=== PATIENT | female | born 1930 | race Caucasian/White ===

== ENCOUNTER 2017-11-30 14:15 | Inpatient (IN) | payer MEDICARE ==
[2017-11-30] MEDS ORDERED: HYDROcodone /APAP 5/325 1 EACH TABLET PO PRN (16:04)
[2017-11-30] MEDS: FAMOTIDINE 20 MG TABLET PO SCH (16:51)
[2017-11-30] MEDS: PANTOPRAZOLE SODIUM 40 MG TABLET PO SCH (16:51)
[2017-11-30 17:35] VITALS: BMI 26.4
[2017-11-30] MEDS: CALCIUM/VIT D 500MG/200IU TABLET PO SCH (20:03)
[2017-11-30] MEDS: GABAPENTIN 300 MG CAPSULE PO SCH (20:03)
[2017-11-30] MEDS ORDERED: MIRABEGRON 25 MG TAB.ER.24H PO ONE (20:07)
[2017-11-30] MEDS ORDERED: PATIENT OWN MED 1 EACH EACH PO SCH (21:00)
[2017-11-30] MEDS ORDERED: MULTIVITAMIN 1 EACH TABLET ONE (23:50)
[2017-11-30] MEDS ORDERED: LOSARTAN POTASSIUM 50 MG TABLET PO ONE (23:50)
[2017-11-30] MEDS ORDERED: LORATADINE 10 MG TABLET PO ONE (23:51)
[2017-12-01] MEDS: ALENDRONATE SODIUM 70 MG TABLET PO SCH (05:51)
[2017-12-01] MEDS: PANTOPRAZOLE SODIUM 40 MG TABLET PO SCH (05:51)
[2017-12-01] MEDS: FAMOTIDINE 20 MG TABLET PO SCH (05:51)
[2017-12-01 06:59] LABS: BASOPHILS % 0.1 (0.0-1.5); EOSINOPHILS % 3.9 % (0.0-6.8); MEAN CORPUSCULAR VOLUME 90.4 fl (80.0-100.0); MONOCYTES % 9.8 % (0.0-11.0); NEUTROPHILS # 4.6 # k/uL (1.4-7.7)
[2017-12-01 07:23] LABS: eGFR (African) > 60; eGFR (Non-African) > 60
--- NOTE | 2017-12-01 09:13 | History and Physical Report ---
CHIEF COMPLAINT: Status post left shoulder arthroplasty. HISTORY OF PRESENT ILLNESS: This is an 87-year-old female who had a left hemiarthroplasty done 4 days ago at [facility] by Dr. Frandy Villanueva. Her postoperative course has been uncomplicated. She comes to us for therapy with a plan for her to be discharged back to her home where she lives with her daughter on discharge. PAST MEDICAL HISTORY: 1. History of hypertension. 2. Gastroesophageal reflux disease. 3. Mild allergies. 4. Osteoarthritis. PAST SURGICAL HISTORY: 1. Left shoulder arthroplasty as previously stated. 2. Appendectomy at age 21. 3. Spontaneous vaginal delivery x2. She denies any other surgeries. CURRENT MEDICATIONS: 1. Tylenol 650 mg p.o. every 6 hours p.r.n. for pain or fever. 2. Fosamax 70 mg p.o. weekly. 3. Calcium with vitamin D 500 mg p.o. b.i.d. 4. Ranitidine 150 mg p.o. daily. 5. Neurontin 300 mg p.o. at bedtime. 6. Hydrocodone 5/325 mg 2 p.o. every 4 hours p.r.n. pain. 7. Fexofenadine 180 mg daily. 8. Losartan 25 mg daily. 9. Multivitamin daily. 10. Omeprazole 40 mg daily. ALLERGIES: She is allergic to no medications. SOCIAL HISTORY: She is retired. She used to work at the [employer] over at [employer]. She now lives with her daughter. Her several years ago. She is a nonsmoker and a nondrinker. PHYSICAL EXAMINATION: Vital Signs: BP: 124/68, P: 86, R: 18, T: 98.7. Oxygen saturation is 95% on room air. General: This is an alert and oriented 87-year-old female in no acute distress. HEENT: Head is normocephalic and atraumatic. Mucous membranes are moist. Her dentures seem to fit fairly well. Neck: No carotid bruits. No thyroid masses. Lungs: Clear. Heart: Regular. Abdomen: Soft. A little bit protuberant. Normal active bowel sounds. No tenderness. Extremities: Warm and well perfused. Mild onychomycotic changes are noted on a few of her nails. She has an easily palpable dorsalis pedis and posterior tibial pulses. Left shoulder examination shows her to have a dressing in place. It is completely dry. I did take down the dressings so that I could inspect the wound itself. It is well approximated. It is covered with Xeroform gauze. No evidence of any bleeding or drainage at this time. ASSESSMENT: 1. Status post left shoulder arthroplasty. 2. Hypertension. 3. Gastroesophageal reflux disease. PLAN: 1. She is admitted. 2. Occupational and physical therapy. 3. JOHN na for DVT prophylaxis. I did not add any additional pharmacologic prophylaxis, as she had not been on that when she was in the hospital. 4. Plan is for her to be discharged back to home when she is able. DOMINGO
[2017-12-01] MEDS: LORATADINE 10 MG TABLET PO SCH (09:26)
[2017-12-01] MEDS: LOSARTAN POTASSIUM 50 MG TABLET PO SCH (09:26)
[2017-12-01] MEDS: CALCIUM/VIT D 500MG/200IU TABLET PO SCH ×2 (09:27→20:00)
[2017-12-01] MEDS: MULTIVITAMIN 1 EACH TABLET PO SCH (09:27)
[2017-12-01] MEDS ORDERED: PATIENT OWN MED 1 EACH EACH PO SCH (18:00)
[2017-12-01] MEDS: MIRABEGRON 25 MG TAB.ER.24H PO SCH (18:05)
[2017-12-01] MEDS: ACETAMINOPHEN 325 MG TABLET PO PRN (18:07)
[2017-12-01] MEDS: ALBUTEROL 90MCG/PUFF INHALER IH PRN (18:09)
[2017-12-01] MEDS: GABAPENTIN 300 MG CAPSULE PO SCH (20:00)
[2017-12-02] MEDS: FAMOTIDINE 20 MG TABLET PO SCH (05:41)
[2017-12-02] MEDS: PANTOPRAZOLE SODIUM 40 MG TABLET PO SCH (05:41)
[2017-12-02] MEDS: LOSARTAN POTASSIUM 50 MG TABLET PO SCH (08:28)
[2017-12-02] MEDS: LORATADINE 10 MG TABLET PO SCH (08:29)
[2017-12-02] MEDS: CALCIUM/VIT D 500MG/200IU TABLET PO SCH ×2 (08:30→20:40)
[2017-12-02] MEDS: MULTIVITAMIN 1 EACH TABLET PO SCH (08:30)
[2017-12-02] MEDS: MIRABEGRON 25 MG TAB.ER.24H PO SCH (17:44)
[2017-12-02] MEDS: GABAPENTIN 300 MG CAPSULE PO SCH (20:37)
[2017-12-03] MEDS: FAMOTIDINE 20 MG TABLET PO SCH (06:04)
[2017-12-03] MEDS: PANTOPRAZOLE SODIUM 40 MG TABLET PO SCH (06:04)
[2017-12-03] MEDS: LOSARTAN POTASSIUM 50 MG TABLET PO SCH (08:42)
[2017-12-03] MEDS: MULTIVITAMIN 1 EACH TABLET PO SCH (08:44)
[2017-12-03] MEDS: CALCIUM/VIT D 500MG/200IU TABLET PO SCH ×3 (08:44→20:21)
[2017-12-03] MEDS: MIRABEGRON 25 MG TAB.ER.24H PO SCH (17:14)
[2017-12-03] MEDS: LORATADINE 10 MG TABLET PO SCH (17:47)
[2017-12-03] MEDS: GABAPENTIN 300 MG CAPSULE PO SCH (20:05)
[2017-12-04] MEDS: PANTOPRAZOLE SODIUM 40 MG TABLET PO SCH (06:07)
[2017-12-04] MEDS: FAMOTIDINE 20 MG TABLET PO SCH (06:07)
[2017-12-04] MEDS: CALCIUM/VIT D 500MG/200IU TABLET PO SCH ×2 (09:42→20:15)
[2017-12-04] MEDS: LORATADINE 10 MG TABLET PO SCH (09:42)
[2017-12-04] MEDS: LOSARTAN POTASSIUM 50 MG TABLET PO SCH (09:42)
[2017-12-04] MEDS: MULTIVITAMIN 1 EACH TABLET PO SCH (09:42)
[2017-12-04] MEDS: MIRABEGRON 25 MG TAB.ER.24H PO SCH (18:01)
[2017-12-04] MEDS: GABAPENTIN 300 MG CAPSULE PO SCH (20:14)
[2017-12-05] MEDS: PANTOPRAZOLE SODIUM 40 MG TABLET PO SCH (06:31)
[2017-12-05] MEDS: FAMOTIDINE 20 MG TABLET PO SCH (06:31)
[2017-12-05] MEDS: LORATADINE 10 MG TABLET PO SCH (09:08)
[2017-12-05] MEDS: LOSARTAN POTASSIUM 50 MG TABLET PO SCH (09:09)
[2017-12-05] MEDS: CALCIUM/VIT D 500MG/200IU TABLET PO SCH (09:09)
[2017-12-05] MEDS: MULTIVITAMIN 1 EACH TABLET PO SCH (09:10)
[2017-12-05] MEDS: MIRABEGRON 25 MG TAB.ER.24H PO SCH (17:01)
[2017-12-07] MEDS: ALENDRONATE SODIUM 70 MG TABLET PO SCH (11:23)
[2017-12-07] MEDS: LOSARTAN POTASSIUM 50 MG TABLET PO SCH (11:26)
[2017-12-07] MEDS: GABAPENTIN 300 MG CAPSULE PO SCH ×3 (11:26→20:59)
[2017-12-07] MEDS: MULTIVITAMIN 1 EACH TABLET PO SCH (11:26)
[2017-12-07] MEDS: CALCIUM/VIT D 500MG/200IU TABLET PO SCH ×3 (11:26→20:59)
[2017-12-07] MEDS: MIRABEGRON 25 MG TAB.ER.24H PO SCH ×2 (11:26→17:35)
[2017-12-07] MEDS: LORATADINE 10 MG TABLET PO SCH (11:26)
[2017-12-07] MEDS: PANTOPRAZOLE SODIUM 40 MG TABLET PO SCH (11:27)
[2017-12-07] MEDS: FAMOTIDINE 20 MG TABLET PO SCH (11:27)
[2017-12-08] MEDS: PANTOPRAZOLE SODIUM 40 MG TABLET PO SCH (06:30)
[2017-12-08] MEDS: FAMOTIDINE 20 MG TABLET PO SCH (06:30)
[2017-12-08] MEDS: MULTIVITAMIN 1 EACH TABLET PO SCH (08:41)
[2017-12-08] MEDS: CALCIUM/VIT D 500MG/200IU TABLET PO SCH ×2 (08:41→21:18)
[2017-12-08] MEDS: LORATADINE 10 MG TABLET PO SCH (08:41)
[2017-12-08] MEDS: LOSARTAN POTASSIUM 50 MG TABLET PO SCH (08:41)
[2017-12-08] MEDS: ACETAMINOPHEN 325 MG TABLET PO PRN ×2 (09:54→21:18)
[2017-12-08] MEDS: MIRABEGRON 25 MG TAB.ER.24H PO SCH (17:26)
[2017-12-08] MEDS: GABAPENTIN 300 MG CAPSULE PO SCH (21:18)
[2017-12-09] MEDS: PANTOPRAZOLE SODIUM 40 MG TABLET PO SCH (06:15)
[2017-12-09] MEDS: FAMOTIDINE 20 MG TABLET PO SCH (06:15)
[2017-12-09] MEDS: MULTIVITAMIN 1 EACH TABLET PO SCH (08:15)
[2017-12-09] MEDS: CALCIUM/VIT D 500MG/200IU TABLET PO SCH ×2 (08:15→20:20)
[2017-12-09] MEDS: LORATADINE 10 MG TABLET PO SCH (08:15)
[2017-12-09] MEDS: LOSARTAN POTASSIUM 50 MG TABLET PO SCH (08:15)
--- NOTE | 2017-12-09 08:54 | Inpatient Progress Note ---
Subjective - Required Recertification Statement I anticipate X number of days because-include discharge plan: 7 - Review of Systems Events since last encounter: Brisa says that her pain is well controlled, and she is doing well in therapy. She denies any new c/o. Her arm is in it's immobilizer with cooling pack in place. General: Denies: Chills HEENT: Denies: Head Aches Pulmonary: Cough. Denies: Dyspnea Cardiovascular: Denies: Chest Pain Gastrointestinal: Denies: Nausea, Vomiting Genitourinary: Denies: Dysuria Musculoskeletal: Shoulder Pain (improving). Denies: Neck Pain Neurological: Denies: Weakness Objective - Exam Vitals and I&O: Vital Signs Temp 98 F 12/08/17 20:22 Pulse 91 H 12/08/17 20:22 Resp 16 12/08/17 20:22 BP 138/93 12/08/17 20:22 Pulse Ox 99 12/08/17 20:22 Intake & Output 12/08/17 12/08/17 12/09/17 11:59 23:59 11:59 Intake Total 240 600 Balance 240 600 Intake: Oral 240 600 Other: Voiding Method Toilet Toilet # Bowel Movements 0 0 0 General: Alert, Oriented to Person, Oriented to Place, Oriented to Time HEENT: Atraumatic, PERRLA, EOMI Neck: Supple, No JVD, No thyromegaly Lungs: Clear to auscultation Cardiovascular: Regular rate Abdomen: Normal bowel sounds Extremities: No clubbing, No cyanosis, No edema, Other (left shoulder immobilizer is in place) Skin: Normal, [place], Warm, Dry Neurological: Normal speech Psych/Mental Status: Mental status NL - Results Results: Laboratory Results WBC 6.40 K/ul (4.00-12.00) 12/01/17 06:40 RBC 4.05 M/ul (3.90-5.20) 12/01/17 06:40 Hgb 11.8 g/dL (12.0-16.0) L 12/01/17 06:40 Hct 36.6 % (34.5-46.5) 12/01/17 06:40 MCV 90.4 fl (80.0-100.0) 12/01/17 06:40 MCH 29.0 pg (28.0-34.0) 12/01/17 06:40 MCHC 32.1 g/dL (30.0-36.0) 12/01/17 06:40 RDW 13.2 % (11.3-14.3) 12/01/17 06:40 Plt Count 153 K/mm3 (130-400) 12/01/17 06:40 Neut % (Auto) 71.2 % (39.0-79.0) 12/01/17 06:40 Lymph % (Auto) 12.8 % (16.0-50.0) L 12/01/17 06:40 Dickinson % (Auto) 9.8 % (0.0-11.0) 12/01/17 06:40 Eos % (Auto) 3.9 % (0.0-6.8) 12/01/17 06:40 Baso % (Auto) 0.1 (0.0-1.5) 12/01/17 06:40 Neut # (Auto) 4.6 # k/uL (1.4-7.7) 12/01/17 06:40 Lymph # (Auto) 0.8 # k/uL (0.6-4.0) 12/01/17 06:40 Dickinson # (Auto) 0.6 # k/uL (0.0-0.9) 12/01/17 06:40 Eos # (Auto) 0.2 # k/uL (0.0-0.6) 12/01/17 06:40 Baso # (Auto) 0.0 # k/uL (0.0-0.5) 12/01/17 06:40 Reactive Lymphs % 2.1 % (0.0-5.0) 12/01/17 06:40 Reactive Lymphs # 0.1 # k/uL (0.0-0.8) 12/01/17 06:40 Sodium 137 mmol/L (136-145) 12/01/17 06:40 Potassium 4.6 mmol/L (3.5-5.1) 12/01/17 06:40 Chloride 104 mmol/L (98-107) 12/01/17 06:40 Carbon Dioxide 28 mmol/L (22-30) 12/01/17 06:40 BUN 23 mg/dL (7-17) H 12/01/17 06:40 Creatinine 0.70 mg/dL (0.52-1.04) 12/01/17 06:40 Estimated Creat Clear 71 12/01/17 06:40 Est GFR ( Amer) > 60 (60-) 12/01/17 06:40 Est GFR (Non-Af Amer) > 60 (60-) 12/01/17 06:40 Glucose 98 mg/dL (74-106) 12/01/17 06:40 Calcium 9.3 mg/dL (8.4-10.2) 12/01/17 06:40 Total Bilirubin 1.1 mg/dL (0.2-1.3) 12/01/17 06:40 AST 21 U/L (15-46) 12/01/17 06:40 ALT 24 U/L (13-69) 12/01/17 06:40 Alkaline Phosphatase 81 U/L (38-126) 12/01/17 06:40 Total Protein 6.0 g/dL (6.3-8.2) L 12/01/17 06:40 Albumin 3.2 g/dL (3.5-5.0) L 12/01/17 06:40 Assessment/Plan - Assessment/Plan (1) Left shoulder arthroplasty Status: Acute Current Visit: Yes Assessment: Healing well Plan: Continue PT/OT (2) GERD Status: Acute Current Visit: Yes
[2017-12-09] MEDS: MIRABEGRON 25 MG TAB.ER.24H PO SCH (17:47)
[2017-12-09] MEDS: GABAPENTIN 300 MG CAPSULE PO SCH (20:15)
[2017-12-10] MEDS: FAMOTIDINE 20 MG TABLET PO SCH (06:33)
[2017-12-10] MEDS: PANTOPRAZOLE SODIUM 40 MG TABLET PO SCH (06:33)
[2017-12-10] MEDS: MULTIVITAMIN 1 EACH TABLET PO SCH (08:42)
[2017-12-10] MEDS: LOSARTAN POTASSIUM 50 MG TABLET PO SCH (08:42)
[2017-12-10] MEDS: LORATADINE 10 MG TABLET PO SCH (08:42)
[2017-12-10] MEDS: CALCIUM/VIT D 500MG/200IU TABLET PO SCH ×2 (08:42→20:31)
[2017-12-10] MEDS: MIRABEGRON 25 MG TAB.ER.24H PO SCH (17:44)
[2017-12-10] MEDS: GABAPENTIN 300 MG CAPSULE PO SCH (20:31)
[2017-12-11] MEDS: PANTOPRAZOLE SODIUM 40 MG TABLET PO SCH (06:51)
[2017-12-11] MEDS: FAMOTIDINE 20 MG TABLET PO SCH (06:51)
[2017-12-11] MEDS: CALCIUM/VIT D 500MG/200IU TABLET PO SCH ×2 (08:33→20:16)
[2017-12-11] MEDS: MULTIVITAMIN 1 EACH TABLET PO SCH (08:33)
[2017-12-11] MEDS: LORATADINE 10 MG TABLET PO SCH (08:33)
[2017-12-11] MEDS: LOSARTAN POTASSIUM 50 MG TABLET PO SCH (08:33)
[2017-12-11] MEDS: MIRABEGRON 25 MG TAB.ER.24H PO SCH (17:35)
[2017-12-11] MEDS: GABAPENTIN 300 MG CAPSULE PO SCH (20:16)
[2017-12-12] MEDS: PANTOPRAZOLE SODIUM 40 MG TABLET PO SCH (06:03)
[2017-12-12] MEDS: FAMOTIDINE 20 MG TABLET PO SCH (06:03)
[2017-12-12] MEDS: ACETAMINOPHEN 325 MG TABLET PO PRN (08:57)
[2017-12-12] MEDS: LORATADINE 10 MG TABLET PO SCH (08:57)
[2017-12-12] MEDS: LOSARTAN POTASSIUM 50 MG TABLET PO SCH (08:57)
[2017-12-12] MEDS: MULTIVITAMIN 1 EACH TABLET PO SCH (08:57)
[2017-12-12] MEDS: CALCIUM/VIT D 500MG/200IU TABLET PO SCH ×2 (08:57→20:36)
[2017-12-12] MEDS: MIRABEGRON 25 MG TAB.ER.24H PO SCH (17:57)
[2017-12-12] MEDS: GABAPENTIN 300 MG CAPSULE PO SCH (20:36)
[2017-12-13] MEDS: FAMOTIDINE 20 MG TABLET PO SCH (06:13)
[2017-12-13] MEDS: PANTOPRAZOLE SODIUM 40 MG TABLET PO SCH (06:13)
[2017-12-13] MEDS: CALCIUM/VIT D 500MG/200IU TABLET PO SCH ×2 (09:01→21:30)
[2017-12-13] MEDS: LOSARTAN POTASSIUM 50 MG TABLET PO SCH (09:01)
[2017-12-13] MEDS: LORATADINE 10 MG TABLET PO SCH (09:01)
[2017-12-13] MEDS: MULTIVITAMIN 1 EACH TABLET PO SCH (09:01)
[2017-12-13] MEDS: MIRABEGRON 25 MG TAB.ER.24H PO SCH (17:41)
[2017-12-13] MEDS: GABAPENTIN 300 MG CAPSULE PO SCH (21:30)
[2017-12-14] MEDS: ALENDRONATE SODIUM 70 MG TABLET PO SCH (05:30)
[2017-12-14] MEDS: FAMOTIDINE 20 MG TABLET PO SCH (06:30)
[2017-12-14] MEDS: PANTOPRAZOLE SODIUM 40 MG TABLET PO SCH (06:30)
[2017-12-14] MEDS: CALCIUM/VIT D 500MG/200IU TABLET PO SCH ×2 (09:32→20:43)
[2017-12-14] MEDS: LOSARTAN POTASSIUM 50 MG TABLET PO SCH (09:32)
[2017-12-14] MEDS: LORATADINE 10 MG TABLET PO SCH (09:32)
[2017-12-14] MEDS: MULTIVITAMIN 1 EACH TABLET PO SCH (09:32)
[2017-12-14] MEDS: ALBUTEROL 90MCG/PUFF INHALER IH PRN (09:48)
[2017-12-14] MEDS: MIRABEGRON 25 MG TAB.ER.24H PO SCH (17:48)
[2017-12-14] MEDS: GABAPENTIN 300 MG CAPSULE PO SCH (20:43)
[2017-12-15] MEDS: FAMOTIDINE 20 MG TABLET PO SCH (05:43)
[2017-12-15] MEDS: PANTOPRAZOLE SODIUM 40 MG TABLET PO SCH (05:43)
[2017-12-15] MEDS: LOSARTAN POTASSIUM 50 MG TABLET PO SCH (08:18)
[2017-12-15] MEDS: MULTIVITAMIN 1 EACH TABLET PO SCH (08:18)
[2017-12-15] MEDS: CALCIUM/VIT D 500MG/200IU TABLET PO SCH ×2 (08:19→20:38)
[2017-12-15] MEDS: LORATADINE 10 MG TABLET PO SCH (08:19)
[2017-12-15] MEDS: MIRABEGRON 25 MG TAB.ER.24H PO SCH (17:51)
[2017-12-15] MEDS: GABAPENTIN 300 MG CAPSULE PO SCH (20:38)
[2017-12-16] MEDS: PANTOPRAZOLE SODIUM 40 MG TABLET PO SCH (06:05)
[2017-12-16] MEDS: FAMOTIDINE 20 MG TABLET PO SCH (06:05)
[2017-12-16] MEDS: LOSARTAN POTASSIUM 50 MG TABLET PO SCH (09:02)
[2017-12-16] MEDS: LORATADINE 10 MG TABLET PO SCH (09:02)
[2017-12-16] MEDS: CALCIUM/VIT D 500MG/200IU TABLET PO SCH (09:03)
[2017-12-16] MEDS: MULTIVITAMIN 1 EACH TABLET PO SCH (09:03)
[2017-12-16 09:24] VITALS: BP 108/67
--- NOTE | 2017-12-24 13:35 | Discharge Summary ---
DATE OF ADMISSION: November 30, 2017 DATE OF DISCHARGE: December 16, 2017 DIAGNOSES ON THIS HOSPITALIZATION: 1. Status post left shoulder arthroplasty. 2. Gastroesophageal reflux disease. 3. Osteoarthritis. SUMMARIZATION OF ADMISSION HISTORY AND PHYSICAL: This is an 87-year-old female who had a left hemiarthroplasty done 4 days prior to admission by Dr. Frandy Villanueva. Postoperative course had been uncomplicated and she came to us for therapy with a plan for her to be discharged home where she lives with her daughter on discharge. HOSPITAL COURSE: She was admitted. She actually did remarkably well with her therapy. She was discharged to home on the following medications. MEDICATIONS ON DISCHARGE: 1. Tylenol 650 mg every 6 hours p.r.n. pain. 2. Fosamax 70 mg weekly. 3. Calcium with vitamin D 500 mg p.o. b.i.d. 4. Ranitidine 150 mg p.o. daily. 5. Neurontin 300 mg p.o. at bedtime. 6. Hydrocodone 5/325 mg 2 every 4 hours p.r.n. pain. 7. Fexofenadine 180 mg daily. 8. Losartan 25 mg daily. 9. Multivitamin 1 daily. 10. Omeprazole 40 mg daily. DISCHARGE INSTRUCTIONS: Follow up with Dr. Villanueva as scheduled and her PCP in 2 weeks. MTDD
== END 2017-12-16 10:45 | disposition home health service (06) | DRG 566 ==
LOC: SOUTH 14:15
PROVIDERS: ADMIT Family Medicine; ATTEND Family Medicine
DX: Z96.612 Presence of left artificial shoulder joint (principal); I10 Essential (primary) hypertension; K21.9 Gastro-esophageal reflux disease without esophagitis
CPT/HCPCS: 36415; 80053; 85025; A9270-GY